=== PATIENT | female | born 2000 | race Two or more races ===

== ENCOUNTER 2024-12-24 12:40 | Inpatient (IN) | payer MEDICAID, SELFPAY ==
[2024-12-24] VITALS (10 sets, daily range): BP systolic 108–129; BP diastolic 62–83; PULSE 75–97; RESP 16–18; TEMP 36.5–37; O2SAT 99; BMI 32.8
--- NOTE | 2024-12-24 | XR_ITS ---
Examination: Complete OB ultrasound greater than 14 weeks Date and time of exam: December 24, 2024 1322 hours INDICATIONS: Onset pelvic contractions today Findings: Viable intrauterine single fetus with single amniotic sac presentation cephalic spine anterior Cardiac motion 145 bpm Placenta anterior grade 3 Umbilical cord insertion 3 vessel seen Amniotic fluid index 13.1 cm Cervix 2.3 cm Ovaries obscured by bowel gas. Composite estimated gestational age based on BPD, head circumference, abdominal circumference, femur length is 39 weeks 2 days Estimated weight 3701 g. Survey of intracranial anatomy, spinal anatomy, abdominal anatomy, four-chamber heart performed with no abnormalities identified. Impression: Viable intrauterine gestation cephalic presentation.
[2024-12-24] MEDS: RINGERS LACTATED 1000 ML 1,000 ML 125 ML IV (13:05)
[2024-12-24] MEDS: Ampicillin Inj 2,000 MG in SODIUM CHLORIDE 0.9% (POP) 100 ML 100 MG IV (14:35)
[2024-12-24] MEDS: OXYTOCIN in NS 20 units 20 UNIT/1,000 ML BAG 125 UNIT IV (15:51)
[2024-12-24] MEDS: MISOPROSTOL 200 mCg TABLET 800 MCG PR (15:52)
--- NOTE | 2024-12-24 16:20 | OBDSUM_ITS ---
Data ([facility]) Data Hx Section: No : 4 Para: 3 Term: 2 : 0 Livin Abortions: Spontaneous & Theraputic: 0 Delivery Data ([facility]) Delivery Data Delivered by: Aissatou Palma Delivery Method Delivery method: Normal Vaginal Delivery Presentation: Vertex position: LOP Episiotomy Episiotomy description: None EBL Estimated blood loss (ml): 250 Additional Procedures Patient is a 24yo [id number] s/p uncomplicated at 39+wk (by ultrasound- she had unknown dating and no care) after presenting in active labor, delivering at 1346 on 12/24/2024. On presentation, SCE was 5cm. She progressed with only AROM as augmentation to C/C/-1 at which point she began pushing. She declined epidural. With good maternal pushing efforts, infant's head delivered LOP. Loose nuchal cord reduced. Left anterior shoulder delivered easily followed by posterior shoulder and corpus. Terminal meconium noted. Infant had spontaneous cry and was vigorous. Apgars 7/9. Infant placed on maternal abdomen where nose/mouth were suctioned and infant dried/stimulated. After approximately 1 minute, cord was clamped x2 and cut by FOB. Baby then taken to warmer for evaluation by sack keeper. Cord blood collected for typing. Patient had not voided in the 3hr that she had been admitted and had received 1L LR, so straight cath was performed to empty bladder fully. With fundal massage and cord traction, placenta delivered spontaneously and intact with 3 vessel centrally inserted cord. Bimanual massage performed and IV pitocin given per protocol with fundus then firm at u-2cm and hemostasis noted. Inspection of perineum and vagina revealed some small abrasions, but nothing requiring repair and totally hemostatic. Sweep just within cervix/JESSICA performed which retrieved a small amount of clot. Cytotec 800mcg AL placed. All counts correct x2. Mom and were doing well when I left the room. Aissatou Palma MD Complications Complications: none
[2024-12-24 16:31] LABS: Syphilis Nonreactive (Nonreactive)
[2024-12-24 16:32] LABS: Amphetamine/Metham Scrn,Ur OB Negative (Negative); Benzoylecgonine Screen, Ur OB Negative (Negative); Opiate Screen,Urine OB Negative (Negative); THC Screen,Urine OB Negative (Negative)
[2024-12-24 16:33] LABS: Basophils # (Auto) 0.1 Thou/mm3 (0.0-0.2); Basophils % (Auto) 0 % (0-2.5); Eosinophils # (Auto) 0.1 Thou/mm3 (0.0-0.5); Eosinophils % (Auto) 1 % (0-10); Hematocrit 32.3 % (36.0-46.0); Hemoglobin 10.2 g/dL (12.0-16.0); Immature Granulocytes % (Auto) 1 % (0-0); Immature Granulocytes Auto 0.08 Thou/mm3 (0.00-0.00); Lymphocytes # (Auto) 1.6 Thou/mm3 (1.0-4.8); Lymphocytes % (Auto) 14 % (10-50); Mean Corpuscular HGB Conc 31.6 g/dl (31.0-37.0); Mean Corpuscular Hemoglobin 23.4 pg (25.0-35.0); Mean Corpuscular Volume 74 fL (80-100); Monocytes # (Auto) 0.7 Thou/mm3 (0.0-0.8); Monocytes % (Auto) 6 % (0-12); Neutrophils # (Auto) 9.4 Thou/mm3 (1.8-7.7); Neutrophils % (Auto) 79 % (37-80); Nucleated Red Blood Cell # 0.03 Thou/mm3 (0.00-0.00); Nucleated Red Blood Cell % 0 /100 WBC (0); Platelet Count 373 Thou/mm3 (140-440); RDW Standard Deviation 47.1 fL (36.4-46.3); Red Blood Count 4.36 Miln/mm3 (4.00-5.20); White Blood Count 11.9 Thou/mm3 (3.6-11.0)
[2024-12-24 16:35] LABS: Chlamydia trachomatis PCR Negative (Not Detect); Neisseria Gonorrhoeae DNA PCR Negative (Not Detect); Trichomonas Negative (Negative)
[2024-12-24 16:36] LABS: HIV (1&2) Antibody Rapid Non-Reactive
[2024-12-24] MEDS: IBUPROFEN TAB 400 MG TABLET 800 MG PO (16:54)
[2024-12-24] MEDS: DOCUSATE SOD 100 MG CAPSULE PO (20:16)
[2024-12-24 22:34] LABS: Basophils % (Auto) 0 % (0-2.5); Eosinophils # (Auto) 0.1 Thou/mm3 (0.0-0.5); Eosinophils % (Auto) 0 % (0-10); Hematocrit 26.5 % (36.0-46.0); Immature Granulocytes % (Auto) 1 % (0-0); Immature Granulocytes Auto 0.08 Thou/mm3 (0.00-0.00); Lymphocytes # (Auto) 1.9 Thou/mm3 (1.0-4.8); Lymphocytes % (Auto) 11 % (10-50); Mean Corpuscular HGB Conc 31.3 g/dl (31.0-37.0); Mean Corpuscular Hemoglobin 22.7 pg (25.0-35.0); Mean Corpuscular Volume 73 fL (80-100); Monocytes # (Auto) 1.2 Thou/mm3 (0.0-0.8); Monocytes % (Auto) 7 % (0-12); Neutrophils # (Auto) 13.9 Thou/mm3 (1.8-7.7); Neutrophils % (Auto) 81 % (37-80); Nucleated Red Blood Cell # 0.02 Thou/mm3 (0.00-0.00); Nucleated Red Blood Cell % 0 /100 WBC (0); Platelet Count 299 Thou/mm3 (140-440); RDW Standard Deviation 47.3 fL (36.4-46.3); Red Blood Count 3.65 Miln/mm3 (4.00-5.20); White Blood Count 17.2 Thou/mm3 (3.6-11.0)
[2024-12-24 22:46] LABS: Hemoglobin 8.3 g/dL (12.0-16.0)
[2024-12-24 22:51] LABS: Hepatitis B Surface Antigen Non Reactive (Non React); Rubella, IgG Antibody Reactive (Immune)
[2024-12-25] MEDS: IBUPROFEN TAB 400 MG TABLET 800 MG PO ×2 (02:18→11:46)
[2024-12-25 04:00] VITALS: BP 117/75; PULSE 80; RESP 16; TEMP 36.9; O2SAT 95
[2024-12-25 08:00] VITALS: BP 116/75; PULSE 81; RESP 17; TEMP 36.6; O2SAT 99
--- NOTE | 2024-12-25 08:15 | PC.LAC ---
Mom states that she is only doing formula at this time. States that once she gets home she plans to pump breasts. Explained stimulation and the fact that if baby isn't going to breast she could lose her milk supply. Explained hand massage as well as skin to skin. (at this time baby wrapped in blankets in bassinet) mom stated she understood. No questions at this time. left hand out for resource center
[2024-12-25] MEDS: DOCUSATE SOD 100 MG CAPSULE PO (08:34)
[2024-12-25 11:38] VITALS: BP 111/72; PULSE 81; RESP 16; TEMP 36.8; O2SAT 99
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
--- NOTE | 2024-12-25 15:00 | PD.LDDS ---
DS: Providers Provider Date of admission: 12/24/24 13:05 Primary care physician: Physician No Primary/Family Admitting Provider: Aissatou Palma MD Attending Provider on Admission: Aissatou Palma MD Attending Provider on DC: Aissatou Palma MD Discharging Provider: Aissatou Palma MD DS: Diagnosis Discharge Diagnosis (1) Normal labor and delivery: Status: Acute (2) Anemia, : Status: Acute Problem List Completed Was Problem List Reviewed/Reconciled?: Yes Summary/Hosp Course Brief History: Bharti is a 24yo [id number] s/p uncomplicated at approx 39wk after presenting in active labor, delivering at 1346 on 12/24/24. She had no care. She has had an uncomplicated course, meeting all milestones and feels ready for discharge home. She is ambulating without lightheadedness, tolerating regular diet no n/v, spontaneously voiding without issue. She has no chest pain or shortness of breath. No fevers or chills. Minimal, appropriate discomfort. Vitals normal, benign exam. Hemodynamically stable with no evidence of infection. PP Hgb 8.3 from 10.2. Peripartum Data Delivery Method: Normal Vaginal Delivery Episiotomy Description: None Status at Discharge Functional status at discharge: independent ambulation Overall status at discharge: patient is back to baseline Time Spent with Patient Time attestation: Total time spent providing and/or coordinating discharge services: Exam Vital Signs Temp Pulse Resp BP Pulse Ox O2 Del Method 98.2 F 81 16 111/72 99 Room Air 12/25/24 11:38 12/25/24 11:38 12/25/24 11:38 12/25/24 11:38 12/25/24 11:38 12/25/24 11:38 Narrative Exam General: well developed, well nourished, no acute distress, conversant Cardiac: normal heart rate Lungs: breathing without distress Abdomen: soft, post-gravid, non-tender, no rebound or guarding, Fundus firm at u-3cm. Extremities: no pain with palpation of calves, trace edema of BLE Discharge Plan Plan Patient Disposition: HOME (Self Care) Patient condition on transfer: Stable Prescriptions/Referrals Prescriptions/Med Rec: New docusate sodium 100 mg Capsule 100 mg PO BID 10 Days Qty: 20 0RF ibuprofen 800 mg tablet 800 mg PO Q8H PRN (Reason: See Comments) 10 Days Qty: 20 0RF ferrous sulfate 325 mg (65 mg iron) tablet 325 mg PO QDAY Qty: 30 0RF Continued prenat.vits,td,bex-ceox-ljysz Tablet 1 tab PO QDAY Referrals: No Primary/Family,Physician [Primary Care Provider] - Patient/Caregiver Discharge Instructions Discharge Activity: activity as tolerated and other Other Discharge Activity Instructions:: vaginal rest and no heavy lifting more than 10 pounds for 6 weeks. Other Discharge Diet Instructions: regular diet Education Materials: After a Vaginal Print Language: Arabic Activity Restrictions/Additional Instructions: Establish care with an OBGYN or CNM in the area and follow up within 4 weeks for visit. Stand Alone Forms: Anita Award Info., Patient Portal Info Letter Discharge Order Discharge Orders: Discharge (Routine); Ordered 12/25/24 Ordered By: Aissatou Palma Planned Discharge Date 12/25/24
[2024-12-25 16:00] VITALS: BP 122/82; PULSE 72; RESP 18; TEMP 36.6; O2SAT 99
== END 2024-12-25 17:15 | disposition home or self-care (01) | DRG 560 ==
LOC: S4NX 12-25 05:42 → S4SX 12-25 05:42
PROVIDERS: Admitting Provider Obstetrics & Gynecology; Visit Provider Obstetrics & Gynecology
DX: O69.81X0 Labor and delivery complicated by cord around neck, without compression, not applicable or unspecified (principal); Z3A.39 39 weeks gestation of pregnancy; Z37.0 Single live birth; O77.0 Labor and delivery complicated by meconium in amniotic fluid; O90.81 Anemia of the puerperium
CPT/HCPCS: 36415; 59409; 76805; 80307; 85025; 86703; 86762; 86780; 86850; 86900; 86901; 87340; 87491; 87591; 87661; 94762; J0290; J2590; J7120; S0191; A9270